=== PATIENT | male | born 1960 | race Caucasian/White ===

== ENCOUNTER 2017-07-12 23:09 | Emergency (ER) | payer OTHER ==
--- NOTE | ~2017-07-12 | CT72 ---
[facility] A Service of [facility] & [facility] RADIOLOGY TEXT RESULTS PATIENT: RAUL LOPEZ LOCATION: [facility] : 60 UNIT #: [id number] AGE: [address]: Dante Farnsworth DO SEX: M ORDER DR: [id number] [facility] [address] [place], [place] [address] [id number] MR#: [id number] Acc #: [id number] NAME: RAUL LOPEZ : 1960 SEX: M STUDY DATE/TIME: 07/12/2017 23:22 UNIT: STEPH ROOM: STUDY DESCRIPTION: CT Head Wo Contrast Stroke Attending Physician: Dante Farnsworth D.O. Ordering Physician: Dante Farnsworth D.O. Primary Care Physician: No Primary Care Physician MEDICAL IMAGING REPORT This report is preliminary unless electronic signature is present EXAM Head CT, 07/12/17 at 23:22 INDICATIONS Patient unresponsive with right side weakness after drug use today. TECHNIQUE Axial images were obtained from the base to the vertex without contrast. No comparison. This CT exam was performed with one or more of the following radiation dose reduction techniques: automatic exposure control, adjustment of mA and/or kV according to patient size, and iterative reconstruction. There is also discussed with Dr. Farnsworth in the emergency room prior this dictation. FINDINGS Study shows a large acute left side parenchymal hemorrhage centered about the basal ganglia. It measures at least 6.0 x 3.3 cm. There is effacement of the ventricles particularly on the left side. There is about 5 mm of midline shift to the right. There is intraventricular hemorrhage in the lateral and third ventricles. Additionally, there may be trace amount of acute subdural hemorrhage in the interhemispheric falx. The basilar cisterns are patent at this time. There is probably an old lacunar infarct in the starr. There is atrophy and there is chronic small vessel ischemic change in the white matter. No masses are seen. There is some intracranial atherosclerotic disease. No skull fracture. IMPRESSION Large acute left intraparenchymal hemorrhage centered in the basal ganglia measuring at least 6.0 x 3.3 cm. There is extension into the lateral and STS. [facility] A Service of [facility] & [facility] / [facility] RADIOLOGY TEXT RESULTS PATIENT: RAUL LOPEZ LOCATION: [facility] : 60 UNIT #: [id number] AGE: [address]: Dante Farnsworth DO SEX: M ORDER DR: third ventricles. There may be trace amount of acute subdural hemorrhage layering along the interhemispheric falx. There is about 5 mm of midline shift to the right. STAT * RESULT Dictated by... Federico Koehler Jr., M.D. THIS IS AN ELECTRONICALLY VERIFIED REPORT Federico Koehler Jr., M.D. at 07/13/2017 5:50 AM TONG/nic TD: 07/12/2017 23:39 JOB #: [id number] MEDICAL IMAGING REPORT Page 1 of 1 COPY
[~2017-07-12 23:09] MED LIST: LISINOPRIL PO; VICODIN 5/500 T1 TAB PO
== END 2017-07-12 23:40 | disposition hospice, home (50) ==
LOC: CED 23:09
DX: I61.9 Nontraumatic intracerebral hemorrhage, unspecified (principal); I10 Essential (primary) hypertension; E11.9 Type 2 diabetes mellitus without complications; Z88.5 Allergy status to narcotic agent; Z79.899 Other long term (current) drug therapy
CPT/HCPCS: 70450; 82947; 96374; 99285